=== PATIENT | male | born 1980 | race Caucasian/White ===

== ENCOUNTER 2021-08-14 10:09 | Emergency (ER) | payer BC, SELFPAY ==
--- NOTE | ~2021-08-14 | XR_ITS ---
EXAMINATION: XR chest 1V portable DATE: 08/14/2021 10:38 INDICATION: COVID positive with cough and increasing shortness of breath TECHNIQUE: frontal view of the chest was obtained. COMPARISON: Chest radiograph dated FINDINGS: The lungs are clear with no focal airspace opacities, pulmonary edema, pleural effusion or pneumothor ax. The cardiomediastinal silhouette is normal. Visualized bones and soft tissues are unremarkable. IMPRESSION: 1. No evident acute cardiopulmonary disease. Reviewed, dictated and finalized at location B. [employer] CENTER MANAGER
[2021-08-14 10:18] VITALS: BP 156/103; PULSE 81; RESP 23; TEMP 37.2; O2SAT 93
--- NOTE | 2021-08-14 10:20 | ECG_ITS ---
Measurements Intervals [place] Rate: 74 P: 28 CO: 175 QRS: -30 QRSD: 130 T: 3 QT: 407 QTc: 453 Interpretive Statements SINUS RHYTHM INTRAVENTRICULAR CONDUCTION DELAY POOR R WAVE PROGRESSION, ANTERIOR LEADS BORDERLINE T WAVE ABNORMALITY- INFERIOR LEADS BASELINE ARTIFACT- I, II, III, AVR, AVL, AVF, V1-V6 BORDERLINE ECG Electronically Signed On 08-14-2021 12:17:20 FRESCO ARTIST by Aaron Camarena D.O.
--- NOTE | 2021-08-14 10:47 | ED.SOB ---
HPI - SOB/Dyspnea General Chief Complaint: Shortness of Breath/Dyspnea Stated Complaint: covid +, sob Time Seen by Provider: 08/14/21 10:17 Source: patient Mode of arrival: ambulatory Limitations: no limitations History of Present Illness HPI Narrative: This is a 41 year old male that presents to the ER for continued shortness of breath. Reports he tested positive for COVID 5 days ago. He has had chills, cough, congestion and shortness of breath. He is COVID vaccinated, but has not had a booster yet. He also reports some pleuritic chest pain. Denies fever or lower extremity edema. Related Data Allergies Allergy/AdvReac Type Severity Reaction Status Date / Time No Known Allergies Allergy Verified 08/14/21 12:26 Review of Systems Review of Systems: CONSTITUTIONAL: Denies fever ENT: Reports rhinorrhea, congestion CARDIOVASCULAR: Reports chest pain. Denies edema. RESPIRATORY: Reports cough and dyspnea. All systems reviewed & are unremarkable except as noted in HPI and below PMFSH Past Medical History Medical History (Updated 08/14/21 @ 12:24 by Leticia Hall PA-C) History of hypertension Social History Social History (Updated 08/14/21 @ 10:53 by Leticia Hall PA-C) Smoking status: Never smoker Exam Narrative: GENERAL: Well-appearing, well-nourished, and in no acute distress. HEAD: Normocephalic, atraumatic. EYES: EOMI. ENT: Nares clear, no rhinorrhea or epistaxis. Mucous membranes moist. Oropharynx without tonsillar hypertrophy exudate or other lesions. NECK: Supple. No adenopathy or masses. CHEST: Clear to auscultation. No respiratory distress. No wheezes rales or rhonchi HEART: Regular rate and rhythm. No murmur heard. Normal peripheral pulses. EXTREMITIES: Normal range of motion. No edema. SKIN: Warm, dry, no rash. NEURO: No focal deficits. Alert and oriented x3. PSYCH: Normal mood and affect Course Vital Signs Vital signs: Vital Signs Temperature 98.9 F 08/14/21 10:18 Pulse Rate 81 08/14/21 10:18 Respiratory Rate 23 H 08/14/21 10:18 Blood Pressure 156/103 H 08/14/21 10:18 Pulse Oximetry 93 08/14/21 10:18 Temperature 98.9 F 08/14/21 10:18 Pulse Rate 81 08/14/21 10:18 Respiratory Rate 23 H 08/14/21 10:18 Blood Pressure 156/103 H 08/14/21 10:18 Pulse Oximetry 93 08/14/21 10:18 MDM - SOB/Dyspnea MDM Narrative Medical decision making narrative: Patient presents to the emergency department for shortness of breath. Known COVID-positive. He is afebrile and nontoxic-appearing. Lungs are clear on exam. Oxygen saturation has remained normal on room air. CBC and metabolic panel without concerning findings. Lactic is not elevated. Patient reporting some intermittent pleuritic chest pain. EKG without concerning changes and baseline troponin is negative. D-dimer is not elevated. Chest x-ray without acute cardiopulmonary abnormality. Patient able to ambulate and maintain normal oxygen saturation. He was updated on case findings. He was instructed on continued care of viral infection. He is to follow-up with his primary care doctor. He was given warnings to return to the ER Lab Data Attestation: I reviewed the patient's lab results. Result diagrams: 08/14/21 10:51 08/14/21 10:51 Labs: Lab Results 08/14/21 08/14/21 08/14/21 Range/Units 10:51 10:51 10:51 WBC 5.0 (4.5-10.0) K/mm3 RBC 4.98 (4.6-6.20) M/mm3 Hgb 15.5 (14.0-18.0) g/dL Hct 43.3 (42.0-52.0) % MCV 86.9 (80-100) fl MCH 31.1 (26-34) pg MCHC 35.8 (32-36) g/dl RDW 12.5 (11.5-14.5) % Plt Count 237 (150-375) k/mm3 MPV 11.2 H (7.4-10.4) fl Immature Gran % (Auto) 0.6 H (0-0.5) % Neut % (Auto) 65.8 (45.5-73.1) % Lymph % (Auto) 20.8 (18.3-44.2) % [place] % (Auto) 10.6 H (2.6-8.5) % Eos % (Auto) 1.6 (0-4.4) % Baso % (Auto) 0.6 (0.2-1.2) % Lymph # (Auto) 1.04 (0.9-3.2) K/mm3 [place] # (Auto) 0.5
[2021-08-14 11:00] LABS: Basophils Percent Auto 0.6 % (0.2-1.2); Eosinophils Absolute Auto 0.1 K/mm3 (0-0.3); Eosinophils Percent Auto 1.6 % (0-4.4); Hematocrit 43.3 % (42.0-52.0); Hemoglobin 15.5 g/dL (14.0-18.0); Immature Granulocyte Absolute 0.03 K/mm3 (0.00-0.031); Immature Granulocyte Percent A 0.6 % (0-0.5); Lymphocytes Absolute Auto 1.04 K/mm3 (0.9-3.2); Lymphocytes Percent Auto 20.8 % (18.3-44.2); Mean Corpuscular HGB Conc 35.8 g/dl (32-36); Mean Corpuscular Hemoglobin 31.1 pg (26-34); Mean Corpuscular Volume 86.9 fl (80-100); Mean Platelet Volume 11.2 fl (7.4-10.4); Monocytes Absolute Auto 0.5 K/mm3 (0.1-0.6); Monocytes Percent Auto 10.6 % (2.6-8.5); Neutrophils Absolute Auto 3.3 K/mm3 (1.3-6.7); Neutrophils Percent Auto 65.8 % (45.5-73.1); Platelet Count Result 237 k/mm3 (150-375); Red Blood Count 4.98 M/mm3 (4.6-6.20); Red Cell Distribution Width 12.5 % (11.5-14.5)
[2021-08-14 11:13] LABS: INR 1.1; Prothrombin Time 13.8 Seconds (11.1-14.7)
[2021-08-14 11:14] LABS: Lactic Acid Reflex 0.8 mmol/L (0.7-2.1); Partial Thromboplastin Time 25.8 SECONDS (22.3-36.8)
[2021-08-14 11:16] LABS: Alanine Aminotransferase 116 U/L (4-50); Albumin Level 4.2 g/dL (3.5-5.1); Alkaline Phosphatase 68 U/L (38-126); Anion Gap 13 mmol/L (8-16); Aspartate Amino Transferase 48 U/L (17-59); Bilirubin,Total 0.6 mg/dL (0.2-1.3); Blood Urea Nitrogen 21 mg/dL (9-20); CRP 3.6 mg/dL (<1.0); Carbon Dioxide 25 mmol/L (22-30); Chloride 100 mmol/L (98-107); Estimated CRCL calculation 123 ml/min; Estimated Glomerular Filt Rate > 60; Glucose 118 mg/dL (65-110); Lactate Dehydrogenase 244 U/L (313-618); Potassium 3.5 mmol/L (3.4-5.0); Sodium 138 mmol/L (137-145)
[2021-08-14 11:17] LABS: D Dimer 0.48 ug/mL (<0.48)
[2021-08-14 11:33] LABS: Troponin I < 0.012 ng/mL (0.000-0.034)
[2021-08-14 12:33] VITALS: BP 132/78; PULSE 78; RESP 18; O2SAT 96
== END 2021-08-14 12:35 | disposition home or self-care (01) ==
PROVIDERS: Physician Assistant; Emergency Provider Emergency Medicine
DX: U07.1 COVID-19 (principal); I10 Essential (primary) hypertension; I45.9 Conduction disorder, unspecified; R94.31 Abnormal electrocardiogram [ECG] [EKG]
CPT/HCPCS: 36415; 71045; 80053; 82728; 83605; 83615; 84484; 85025; 85380; 85610; 85730; 86140; 93005; 99284

== ENCOUNTER 2024-06-23 20:50 | Emergency (ER) | payer OTHER, SELFPAY ==
[2024-06-23] VITALS (17 sets, daily range): BP systolic 93–126; BP diastolic 50–84; PULSE 65–91; RESP 12–23; TEMP 36.3; O2SAT 92–100
--- NOTE | ~2024-06-23 | XR_ITS ---
EXAMINATION: XR chest 2V Exam Date/Time: 06/23/2024 21:22 RETAIL SALES SPECIALIST HISTORY: near syncope Comparison: 08/14/2021. RESULT: Lines, tubes, and devices: None. Lungs and pleura: Low volumes with crowding, otherwise clear. Cardiomediastinal silhouette: Stable. Other: No acute osseous or upper abdominal finding. IMPRESSION: No acute cardiopulmonary process. Reviewed, dictated and finalized at location K. [place] SALES SPECIALIST
--- NOTE | ~2024-06-23 | CT_ITS ---
Non-contrast Head CT History: Syncope Technique: Axial non-contrast imaging of the brain was performed. Dose reduction technique was used on this scan by utilizing automated exposure control and iterative reconstruction technique. The dose -length product (DLP) was 756.67 mGy-cm. Findings: There is no evidence of intracranial hemorrhage, mass lesion, or acute infarct. Brain par enchyma appears normal. The ventricles and subarachnoid spaces are normal in size. The calvarium ap pears normal. The visualized paranasal sinuses and mastoid air cells are clear. Impression: No significant abnormality seen. Reviewed, dictated and finalized at location . PRESS OPERATOR Impression: No significant abnormality seen.
[2024-06-23 21:01] LABS: Glucose Point of Care 200 mg/dl (65-105)
--- NOTE | 2024-06-23 21:05 | ECG_ITS ---
Test Date: 2024-06-23 21:11:01 Measurements Intervals [place] Rate: 68 P: 26 CT: 165 QRS: 90 QRSD: 107 T: 57 QT: 398 QTc: 423 Interpretive Statements SINUS RHYTHM RIGHT AXIS DEVIATION POOR R WAVE PROGRESSION MINIMAL Q WAVES- INFERIOR LEADS BORDERLINE ECG No previous ECG available for comparison Electronically Signed On 06-24-2024 07:40:56 RV DETAILER by Aaron Camarena D.O.
[2024-06-23 21:26] LABS: Basophils Percent Auto 0.5 % (0.2-1.2); Eosinophils Absolute Auto 0.1 K/mm3 (0-0.3); Eosinophils Percent Auto 0.9 % (0-4.4); Hematocrit 40.1 % (42.0-52.0); Hemoglobin 13.8 g/dL (14.0-18.0); Immature Granulocyte Absolute 0.03 K/mm3 (0.00-0.031); Immature Granulocyte Percent A 0.4 % (0-0.5); Lymphocytes Absolute Auto 2.15 K/mm3 (0.9-3.2); Lymphocytes Percent Auto 28.6 % (18.3-44.2); Mean Corpuscular HGB Conc 34.4 g/dl (32-36); Mean Corpuscular Hemoglobin 32.2 pg (26-34); Mean Corpuscular Volume 93.5 fl (80-100); Monocytes Absolute Auto 0.6 K/mm3 (0.1-0.6); Monocytes Percent Auto 7.7 % (2.6-8.5); Neutrophils Absolute Auto 4.6 K/mm3 (1.3-6.7); Neutrophils Percent Auto 61.9 % (45.5-73.1); Platelet Count Result 215 k/mm3 (150-375); Red Blood Count 4.29 M/mm3 (4.6-6.20); Red Cell Distribution Width 13.1 % (11.5-14.5); White Blood Count 7.5 K/mm3 (4.5-10.0)
[2024-06-23 21:35] LABS: Alanine Aminotransferase 18 U/L (6-50); Albumin Level 4.4 g/dL (3.5-5.1); Alkaline Phosphatase 69 U/L (38-126); Anion Gap 10 mmol/L (4-12); Aspartate Amino Transferase 24 U/L (17-59); Bilirubin,Total 0.4 mg/dL (0.2-1.3); Blood Urea Nitrogen 25 mg/dL (9-20); Calcium 8.8 mg/dL (8.4-10.2); Carbon Dioxide 23 mmol/L (22-30); Chloride 101 mmol/L (98-107); Estimated CRCL calculation 104 ml/min; Estimated Glomerular Filt Rate > 60; Glucose 186 mg/dL (65-110); Potassium 4.1 mmol/L (3.4-5.0); Sodium 134 mmol/L (137-145)
[2024-06-23] MEDS: SODIUM CHLORIDE 0.9% IV 1,000 ML 999 ML IV CONT (22:39)
[2024-06-23 22:48] LABS: Magnesium 1.9 mg/dL (1.6-2.3)
--- NOTE | 2024-06-23 22:55 | ED.GENADULT ---
HPI - General Adult General Chief complaint: Syncope Stated complaint: syncopal episode, lightheaded x5 minutes, weak Time Seen by Provider: 06/23/24 22:17 History of Present Illness HPI narrative: Patient 44-year-old gentleman presents emergency department with chief complaint of syncope. Patient reports that he has significant family history for cardiac disease reports that he was at a family gathering and reports that he started to feel lightheaded got diaphoretic and had a syncopal episode. The family reports that whenever he became unresponsive ED down of couple of twitches lasted less than a minute on the overall symptoms the patient reports that he feels weak and run down denies chest pain did report that he got diaphoretic during the episode. Related Data Allergies Allergy/AdvReac Type Severity Reaction Status Date / Time No Known Allergies Allergy Verified 06/23/24 20:52 Review of Systems Review of Systems: A 10 system review of systems was completed on the patient and is negative except for what is stated in the HPI. Nursing and ancillary documentation was reviewed. [facility] Past Medical History Medical History History of hypertension Social History Social History Smoking status: Never smoker Exam Narrative: GENERAL: Well-appearing, well-nourished, and in no acute distress. HEAD: Normocephalic, atraumatic. EYES: PERRLA and EOMI. ENT: Nares clear, no rhinorrhea or epistaxis. Mucous membranes moist. NECK: Supple. CHEST: Clear to auscultation. No respiratory distress. HEART: Regular rate and rhythm. No murmur heard. Normal peripheral pulses. ABDOMEN: Soft, nontender, nondistended, normal active bowel sounds. EXTREMITIES: Normal range of motion. No edema. SKIN: Warm, dry, no rash. NEURO: No focal deficits. Alert and oriented x3. PSYCH: Normal mood and affect. Course Vital Signs Vital signs: Vital Signs Temperature 36.3 C L 06/23/24 21:11 Pulse Rate 76 06/23/24 21:11 Respiratory Rate 12 06/23/24 21:11 Blood Pressure 93/62 L 06/23/24 21:11 Pulse Oximetry 100 06/23/24 21:11 Temperature 36.3 C L 06/23/24 21:11 Pulse Rate 59 L 06/24/24 02:00 Respiratory Rate 17 06/24/24 02:00 Blood Pressure 124/82 06/24/24 02:00 Pulse Oximetry 96 06/24/24 02:00 Medical Decision Making MDM Narrative Medical decision making narrative: differential diagnosis includes electrolyte abnormality, dehydration, syncope laboratory studies were obtained on the patient showed no acute abnormality other than a blood sugar of 200 EKG showed no acute ischemic changes CT head showed no acute findings. Patient is observed in the emergency department is feeling much better the patient was offered admission and the patient has chosen to go home and follow-up as an outpatient Vital Signs Vital Signs: Vital Signs Temperature 36.3 C L 06/23/24 21:11 Pulse Rate 76 06/23/24 21:11 Respiratory Rate 12 06/23/24 21:11 Blood Pressure 93/62 L 06/23/24 21:11 Pulse Oximetry 100 06/23/24 21:11 Temperature 36.3 C L 06/23/24 21:11 Pulse Rate 59 L 06/24/24 02:00 Respiratory Rate 17 06/24/24 02:00 Blood Pressure 124/82 06/24/24 02:00 Pulse Oximetry 96 06/24/24 02:00 Lab Data 06/23/24 21:20 06/23/24 21:20 Labs: Lab Results 06/23/24 06/23/24 06/23/24 Range/Units 20:58 21:20 22:42 WBC 7.5 (4.5-10.0) K/mm3 RBC 4.29 L (4.6-6.20) M/mm3 Hgb 13.8 L (14.0-18.0) g/dL Hct 40.1 L (42.0-52.0) % MCV 93.5 (80-100) fl MCH 32.2 (26-34) pg MCHC 34.4 (32-36) g/dl RDW 13.1 (11.5-14.5) % Plt Count 215 (150-375) k/mm3 MPV 10.0 (7.4-10.4) fl Immature Gran % (Auto) 0.4 (0-0.5) % Neut % (Auto) 61.9 (45.5-73.1) % Lymph % (Auto) 28.6 (18.3-44.2) % [place] % (Auto) 7.7 (2.6-8.5) % Eos % (Auto) 0.9 (0-4.4) % Baso % (Auto) 0.5 (0.2-1.2) % Lymph # (Auto) 2.15 (0.9-3.2) K/mm3 [place] # (Auto) 0.6 (0.1-0.6) K/mm3 Eos # (Auto) 0.1 (0-0.3) K/mm3 Baso # (Auto) 0.0 (0.0-0.1) K/mm3 Abs Immat Gran (auto) 0.03 (0.00-0.031) K/mm3 Absolute Neuts (auto) 4.6 (1.3-6.7) K/mm3 Absolute Nucleated RBC 0.000 (0.0-0.012) K/mm3 Nucleated RBC % 0.0 (0.0-0.2) % Sodium 134 L (137-145) mmol/L Potassium 4.1 (3.4-5.0) mmol/L Chloride 101 (98-107) mmol/L Carbon Dioxide 23 (22-30) mmol/L Anion Gap 10 (4-12) mmol/L BUN 25 H (9-20) mg/dL Creatinine 1.10 (0.7-1.3) mg/dL Estim Creat Clear Calc 104 ml/min Estimated GFR > 60 (59 - ) Glucose 186 H (65-110) mg/dL POC Capillary Glucose 200 H (65-105) mg/dl Lactic Acid 2.0 (0.7-2.0) mmol/L Calcium 8.8 (8.4-10.2) mg/dL Magnesium 1.9 (1.6-2.3) mg/dL Total Bilirubin 0.4 (0.2-1.3) mg/dL AST 24 (17-59) U/L ALT 18 (6-50) U/L Alkaline Phosphatase 69 (38-126) U/L Troponin I < 0.012 (0.000-0.034) ng/mL Total Protein 8.0 (6.3-8.2) g/dL Albumin 4.4 (3.5-5.1) g/dL Procalcitonin 0.1 ng/mL Discharge Plan Discharge Clinical Impression: Syncope Patient Disposition: Home, Self-Care Condition: Stable Instructions: Antibiotic Form, Syncope (ED) Prescriptions: No Action albuterol sulfate [Ventolin HFA] 90 mcg/actuation HFA aerosol inhaler 2 puff inhalation QID PRN (Reason: shortness of breath or wheezing) Qty: 8.5 0RF Follow-up/Referrals: UNKNOWN,DOCTOR [Primary Care Provider] - Doe Palma MD [Physician] - Time of Disposition: 02:47
[2024-06-23 23:01] LABS: Troponin I < 0.012 ng/mL (0.000-0.034)
[2024-06-23 23:05] LABS: Procalcitonin 0.1 ng/mL
[2024-06-24] VITALS (7 sets, daily range): BP systolic 124; BP diastolic 82; PULSE 59–69; RESP 12–17; O2SAT 93–96
== END 2024-06-24 03:05 | disposition home or self-care (01) ==
PROVIDERS: Emergency Provider Emergency Medicine
DX: R55 Syncope and collapse (principal); I10 Essential (primary) hypertension; R94.31 Abnormal electrocardiogram [ECG] [EKG]
CPT/HCPCS: 36415; 70450; 71046; 80053; 82948; 83605; 83735; 84145; 84484; 85025; 93005; 96360; 96361; 99284; J7030

== ENCOUNTER 2024-07-06 13:35 | Outpatient (CLI) | payer OTHER, SELFPAY ==
--- NOTE | 2024-07-06 | ECHO_ITS ---
Patient Info Name: Marciano Mi Age: 44 years : 1980 Gender: Male Ht: 74 in Wt: 260 lbs BSA: 2.52 m2 HR: 65 bpm BP: 143 / 89 mmHg Heart Rhythm: Sinus Rhythm Technical Quality: Good Exam Date: 07/06/2024 2:05 PM Exam Location: Echo Lab Patient Status: Outpatient Admit Date: 07/06/2024 Staff Ordering Physician: IRAJ, HERBIE Lara M.D. Manager Card: Michelle Ray RDCS Attending Provider: IRAJ, HERBIE Lara M.D. Referring Physician: LILY, IRAJ; Exam Type: CA echo doppler color flow Study Info Indications - syncope Complete two-dimensional, color flow and Doppler transthoracic echocardiogram is performed. Summary 1. Complete two-dimensional, color flow and Doppler transthoracic echocardiogram is performed. 2. Left ventricular chamber dimension is moderately enlarged. 3. Left ventricular systolic function is normal, estimated at 60-65%. 4. The left ventricular diastolic function is normal. 5. E/e' 7 is not elevated. 6. Left atrial chamber dimension is mildly enlarged. 7. There is mild tricuspid valve regurgitation. 8. No pulmonary hypertension, estimated pulmonary arterial systolic pressure is 26 mmHg. 9. There is trace pulmonic regurgitation. Left Ventricle E/e' 7 is not elevated. Left ventricular chamber dimension is moderately enlarged. Left ventricular systolic function is normal, estimated at 60-65%. The left ventricular diastolic function is normal. Right Ventricle Right ventricular systolic function is normal and with normal TAPSE 2.3 cm. Right ventricular chamber dimension is normal. Left Atria Left atrial chamber dimension is mildly enlarged. Right Atria Right atrial chamber dimension is normal. Aortic Valve The aortic valve is trileaflet. There is no aortic valve stenosis. There is no aortic valve regurgitation. Pulmonic Valve There is trace pulmonic regurgitation. Mitral Valve There is no mitral valve stenosis. There is no mitral valve regurgitation. Tricuspid Valve There is mild tricuspid valve regurgitation. No pulmonary hypertension, estimated pulmonary arterial systolic pressure is 26 mmHg. Pericardium/Pleural There is no pericardial effusion. Inferior Vena Cava Normal inferior vena cava with >50% collapse upon inspiration consistent with normal right atrial pressure, 5 mmHg. Aorta The aortic root size at the sinus of Valsalva is normal. Left Ventricular Outflow Tract Name Value Normal LVOT 2D LVOT Diameter 2.1 cm LVOT Doppler LVOT Peak Gradient 3 mmHg LVOT Mean Gradient 2 mmHg LVOT VTI 24 cm LVOT VTI/AV VTI Ratio 1.0 LVOT Stroke Volume 85 ml LVOT CO 4.9 l/min LVOT CI 1.9 l/min/m2 Pulmonic Valve Name Value Normal PV Doppler PV Peak Gradient 6 mmHg Mitral Valve Name Value Normal MV Doppler MV Decel [place] 406 cm/s2 MV PHT 53 ms MV Area (PHT) 4.2 cm2 4.0-5.0 MV Diastolic Function MV E Peak Velocity 74 cm/s MV A Peak Velocity 68 cm/s MV E/A 1.1 MV Decel Time 182 ms MV Annular TDI MV E/e' (Septal) 8.4 <=8.0 MV E/e' (Lateral) 6.2 <=8.0 MV E/e' (Average) 7.3 Tricuspid Valve Name Value Normal TV Regurgitation Doppler TR Peak Velocity 228 cm/s TR Peak Gradient 21 mmHg Estimated PAP/RSVP RA Pressure 5 mmHg <=5 PA Systolic Pressure 26 mmHg <36 RV Systolic Pressure 26 mmHg <36 Aortic Valve Name Value Normal AV Doppler AV Peak Velocity 98 cm/s AV Peak Gradient 4 mmHg AV Mean Gradient 3 mmHg AV VTI 25 cm AV Area (Cont Eq VTI) 3.4 cm2 >=3.0 AV Area (Cont Eq Shalom) 3.2 cm2 AV Regurgitation 2D LVOT Area 3.6 cm2 Ventricles Name Value Normal LV Dimensions 2D/MM IVS Diastolic Thickness (2D) 1.0 cm 0.6-1.0 LVID Diastole (2D) 5.7 cm 4.2-5.8 LVIW Diastolic Thickness (2D) 0.8 cm 0.6-1.0 LVID Systole (2D) 3.7 cm 2.5-4.0 LVOT Diameter 2.1 cm LV Mass (2D Cubed) 197.79 g 88.00-224.00 LV Mass Index (2D Cubed) 79 g/m2 49-115 Relative Wall Thickness (2D) 0.29 LV Fractional Shortening/Ejection Fraction 2D/MM LV Fractional Shortening (2D) 35 % 25-43 LV EF (2D Teicholz) 64 % 52-72 LV Diastolic Volume (4C MOD) 158 ml LV EF (4C MOD) 68 % LV Diastolic Volume (2C MOD) 175 ml LV EF (2C MOD) 63 % LV Diastolic Volume (BP MOD) 168 ml 62-150 LV Diastolic Volume Index (BP MOD) 67 ml/m2 34-74 LV Systolic Volume (BP MOD) 59 ml 21-61 LV Systolic Volume Index (BP MOD) 24 ml/m2 11-31 LV EF (BP MOD) 65 % 52-72 LV Diastolic Length (4C) 8.9 cm LV Systolic Length (4C) 6.6 cm LV Stroke Volume (4C MOD) 108 ml Atria Name Value Normal LA Dimensions LA Volume (4C A-L) 65 ml LA Volume (BP A-L) 81 ml RA Dimensions RA Area (4C) 14.7 cm2 <=18.0 Report Signatures
== END 2024-07-06 13:36 | disposition home or self-care (01) ==
DX: I07.1 Rheumatic tricuspid insufficiency (principal); Z09 Encounter for follow-up examination after completed treatment for conditions other than malignant neoplasm; R55 Syncope and collapse; Z82.49 Family history of ischemic heart disease and other diseases of the circulatory system
CPT/HCPCS: 93306